=== PATIENT | male | born 1955 | race Caucasian/White ===

== ENCOUNTER 2019-03-26 06:01 | Day surgery (SDC) | payer BC ==
[2019-03-26] MEDS ORDERED: Lactated Ringers 1,000 ML IV SCH (06:30)
--- NOTE | 2019-03-26 10:49 | OP ---
SURGERY DATE/TIME: 03/26/2019 0848 PREOPERATIVE DIAGNOSES: 1) The patient has had continued treatment of gastroesophageal reflux disease for quite some while. 2) He has known hiatal hernia. 3) He has a history of ulcers. 4) He is having evaluation of his symptomology which is persistent. 5) He also presents for screening colonoscopy. 6) He has a family history of colon cancer. 7) He has a personal history of colon polyps. He has not had a recent colonoscopic examination. POSTOPERATIVE DIAGNOSES: 1) The patient has had continued treatment of gastroesophageal reflux disease for quite some while. 2) He has known hiatal hernia. 3) He has a history of ulcers. 4) He is having evaluation of his symptomology which is persistent. 5) He also presents for screening colonoscopy. 6) He has a family history of colon cancer. 7) He has a personal history of colon polyps. He has not had a recent colonoscopic examination. PROCEDURES: 1) EGD. 2) Colonoscopy. SURGEON: Hemant Moralez M.D. ANESTHESIA: MAC. COMPLICATIONS: None. CONDITION: Stable. INDICATION: A patient requiring evaluation. DESCRIPTION OF PROCEDURE: Taken to endoscopy. Left lateral decubitus position. Pharyngoesophageal junction normal. Esophagus normal down to gastroesophageal junction. Esophagitis grade II-III. A 2 inch hiatal hernia. Fundus normal. In the body and antrum there was mild antritis. Ammonia Box Tender biopsy for CLOtest. Pylorus satisfactory. Duodenal bulb excellent. Second portion satisfactory. The scope withdrawn. No additional lesions. Anal digital examination. There is poor prep. The scope advanced to the hepatic flexure, very long, very redundant, was not going to go down the ascending colon today and the prep was poor. He was given barium enema instructions with full barium enema prep and will be scheduled for barium enema tomorrow.
[2019-03-26 12:54] VITALS: BP 105/62; PULSE 67; O2SAT 98
== END 2019-03-26 11:00 | disposition home or self-care (01) ==
LOC: SDC 06:01
PROVIDERS: ATTEND Surgery
DX: Z12.11 Encounter for screening for malignant neoplasm of colon (principal); K21.9 Gastro-esophageal reflux disease without esophagitis; K44.9 Diaphragmatic hernia without obstruction or gangrene; K29.60 Other gastritis without bleeding; E11.9 Type 2 diabetes mellitus without complications; Z80.0 Family history of malignant neoplasm of digestive organs; Z86.010 Personal history of colon polyps
CPT/HCPCS: 82962; 87081; 88305

== ENCOUNTER 2023-08-14 11:30 | Emergency (ER) | payer OTHER ==
[2023-08-14 11:53] VITALS: TEMP 98.5
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
[2023-08-14 12:39] LABS: Absolute Neutrophil Ct (ANC) 5.27 x10^3/uL (1.4-6.9); BASOPHIL % 0.5 % (0.0-0.4); Basophil (Absolute #) 0.04 x10^3/uL (0-0.4); Eosinophil % 2.4 % (0.00-5.0); Eosinophil (Absolute #) 0.18 x10^3/uL (0-0.5); Hematocrit 40.4 % (42-50); Hemoglobin 12.8 g/dL (12.5-18.0); IMMATURE GRAN # 0.02 x10^3u/L (0.00-0.03); IMMATURE GRAN % 0.3 % (0.00-0.4); Lymphocyte (Absolute #) 1.41 x10^3/uL (1.0-4.6); Mean Cell Volume 86.7 fL (78-100); Mean Corpuscular Hemoglobin 27.5 pg (26-32); Mean Corpuscular Hgb Concent. 31.7 g/dL (32-36); Monocyte (Absolute #) 0.51 x10^3/uL (0.0-1.3); Monocytes % 6.9 % (0.0-12.0); Neutrophil % 70.9 % (36.0-66.0); Platelet Count 249 x10^3/uL (150-450); Red Blood Count 4.66 x10^6/uL (4.1-5.6); Red Cell Distribution Width 14.8 % (11.5-14.0); White Blood Count 7.4 x10^3/uL (4.0-10.5)
[2023-08-14 12:47] LABS: ALBUMIN 4.2 g/dL (3.5-5.0); ANION GAP 11.5 MEQ/L (5-15); BILIRUBIN,TOTAL 0.6 mg/dL (0.2-1.3); Creatinine 1 1.64 mg/dL (0.66-1.25); EST GLOMERULAR FILTRATION RATE 45.6 ML/MIN; Potassium 3.6 mmol/L (3.5-5.1); Total Protein 7.8 g/dL (6.3-8.2)
--- NOTE | 2023-08-14 12:54 | XRAY ---
Indication: Productive cough and short of breath. Comparison: None Portable apical lordotic chest clear with incidental small left base calcified granuloma. Heart not enlarged. Bony thorax intact. Impression: Nonacute chest with incidental old granulomatous disease.
--- NOTE | 2023-08-14 13:20 | XRAY ---
Indication: Headache. Multiple contiguous axial images obtained through the head without contrast. Comparison: None Normal appearing brain parenchyma, ventricles, and bony calvarium for patient's age. Mild/moderate mucosal thickening both ethmoid/maxillary/sphenoid sinuses. Mastoid air cells are clear. Impression: Pansinusitis. Remaining CT head without contrast exam is normal.
[2023-08-14] MEDS ORDERED: ROCEPHIN 1 Gm-D5w 50 ml Bag** 1 G/50 ML IVPB IV STA (13:26)
[2023-08-14] MEDS ORDERED: HYDROCODONE-ACETAMIN 2.5-108/5 ML SOLUTION PO STA (13:30)
[2023-08-14] MEDS ORDERED: HYDROCODONE-ACETAMIN 2.5-108/5 ML SOLUTION ONE (13:34)
[2023-08-14] MEDS ORDERED: ROCEPHIN 1 Gm-D5w 50 ml Bag** 1 G/50 ML IVPB IV ONE (13:34)
[2023-08-14 14:18] VITALS: O2SAT 97
[2023-08-14 14:30] LABS: INFLUENZA A NEGATIVE (NEGATIVE); INFLUENZA B NEGATIVE (NEGATIVE); RESPIRATORY SYNCTIAL VIRUS NEGATIVE (NEGATIVE); SARS-CoV-2 Xpert Express NEGATIVE (NEGATIVE)
[2023-08-14 14:42] VITALS: BP 100/52; PULSE 61; RESP 18
== END 2023-08-14 14:58 | disposition home or self-care (01) ==
LOC: ED 11:30
DX: J32.4 Chronic pansinusitis (principal); R05.9 Cough, unspecified; R51.9 Headache, unspecified; R06.02 Shortness of breath; E78.5 Hyperlipidemia, unspecified; I13.0 Hypertensive heart and chronic kidney disease with heart failure and stage 1 through stage 4 chronic kidney disease, or unspecified chronic kidney disease; I50.9 Heart failure, unspecified; E11.22 Type 2 diabetes mellitus with diabetic chronic kidney disease; N18.30 Chronic kidney disease, stage 3 unspecified; Z79.01 Long term (current) use of anticoagulants; Z79.84 Long term (current) use of oral hypoglycemic drugs; Z79.52 Long term (current) use of systemic steroids; Z79.899 Other long term (current) drug therapy; Z20.828 Contact with and (suspected) exposure to other viral communicable diseases
CPT/HCPCS: 0241U; 36000; 36415; 70450; 71045; 80053; 83605; 83880; 84484; 85025; 87040; 93005; 93041; 96365; 99284; J0696; A9270-GY

== ENCOUNTER 2024-11-20 17:50 | Emergency (ER) | payer OTHER ==
[2024-11-20 18:07] VITALS: TEMP 97.4
[2024-11-20] MEDS ORDERED: Sodium Chloride 0.9% 1000 ML 1,000 ML ONE (18:19)
[2024-11-20] MEDS: Sodium Chloride 0.9% 1000 ML 1,000 ML IV STA (18:20)
[2024-11-20 18:23] LABS: Absolute Neutrophil Ct (ANC) 4.38 x10^3/uL (1.78-5.38); BASOPHIL % 0.6 % (0.2-1.2); Basophil (Absolute #) 0.04 x10^3/uL (0.01-0.08); Eosinophil % 2.5 % (0.8-7.0); Eosinophil (Absolute #) 0.17 x10^3/uL (0.04-0.54); Hematocrit 38.2 % (40.1-51.0); Hemoglobin 12.7 g/dL (13.7-17.5); IMMATURE GRAN # 0.03 x10^3u/L (0.001-0.031); IMMATURE GRAN % 0.4 % (0.001-0.429); Lymphocyte (Absolute #) 1.68 x10^3/uL (1.32-3.57); Lymphocytes % 24.8 % (21.8-53.1); Mean Cell Volume 90.3 fL (79.0-92.2); Mean Corpuscular Hgb Concent. 33.2 g/dL (32.3-36.5); Mean Platelet Volume 9.4 fL (9.4-12.4); Monocyte (Absolute #) 0.48 x10^3/uL (0.30-0.82); Monocytes % 7.1 % (5.3-12.2); Neutrophil % 64.6 % (34.0-67.9); Platelet Count 225 x10^3/uL (163-337); Red Blood Count 4.23 x10^6/uL (4.63-6.08); Red Cell Distribution Width 12.6 % (11.6-14.4); White Blood Count 6.8 x10^3/uL (4.23-9.07)
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
[2024-11-20 18:37] LABS: ALBUMIN 4.4 g/dL (3.5-5.0); ANION GAP 15.6 MEQ/L (5-15); BILIRUBIN,TOTAL 0.7 mg/dL (0.2-1.3); Creatinine 1 1.76 mg/dL (0.66-1.25); EST GLOMERULAR FILTRATION RATE 41.3 ML/MIN; MAGNESIUM 2.1 mg/dL (1.6-2.3); Potassium 4.1 mmol/L (3.5-5.1); Total Protein 7.4 g/dL (6.3-8.2)
[2024-11-20 19:14] VITALS: BP 98/56; PULSE 79; RESP 15
[2024-11-20 19:18] VITALS: O2SAT 95
== END 2024-11-20 19:42 | disposition home or self-care (01) ==
LOC: ED 17:50
DX: R19.7 Diarrhea, unspecified (principal); I13.0 Hypertensive heart and chronic kidney disease with heart failure and stage 1 through stage 4 chronic kidney disease, or unspecified chronic kidney disease; I50.9 Heart failure, unspecified; E11.22 Type 2 diabetes mellitus with diabetic chronic kidney disease; N18.30 Chronic kidney disease, stage 3 unspecified; E78.5 Hyperlipidemia, unspecified; Z79.01 Long term (current) use of anticoagulants; Z79.84 Long term (current) use of oral hypoglycemic drugs; Z79.899 Other long term (current) drug therapy
CPT/HCPCS: 36415; 80053; 83735; 85025; 99283